=== PATIENT | female | born 1970 | race Caucasian/White ===

== ENCOUNTER → 2019-05-01 | Outpatient (CLI) | payer BC ==
[~2019-05-01] MED LIST: LORTAB 5/500 501 TAB PO; NO HOME MEDICATIONS
== END ==
LOC: MC.RAD 07:25
DX: Z12.31 Encounter for screening mammogram for malignant neoplasm of breast (principal); N63.10 Unspecified lump in the right breast, unspecified quadrant

== ENCOUNTER → 2019-05-07 | Outpatient (CLI) | payer BC | LOC: MC.RAD 14:03 | DX: N60.01 Solitary cyst of right breast (principal) ==

== ENCOUNTER → 2020-06-18 | Outpatient (CLI) | payer BC | LOC: MC.RAD 07:30 | DX: Z12.31 Encounter for screening mammogram for malignant neoplasm of breast (principal) ==

== ENCOUNTER → 2021-07-12 | Outpatient (CLI) | payer BC | LOC: MC.RAD 11:20 | DX: Z12.31 Encounter for screening mammogram for malignant neoplasm of breast (principal) ==

== ENCOUNTER → 2024-02-29 | Outpatient (CLI) | payer BC ==
[~2024-02-29] MED LIST changes: +MOTRIN 600600 MG/TAB PO; +NORCO 325 MG-51 TAB PO
== END ==
LOC: MC.RAD 07:08
DX: Z12.31 Encounter for screening mammogram for malignant neoplasm of breast (principal); N63.10 Unspecified lump in the right breast, unspecified quadrant

== ENCOUNTER → 2024-03-12 | Outpatient (CLI) | payer BC ==
[~2024-03-12] MED LIST changes: -MOTRIN 600600 MG/TAB PO; -NORCO 325 MG-51 TAB PO
== END ==
LOC: MC.RAD 09:49
DX: N63.14 Unspecified lump in the right breast, lower inner quadrant (principal)

== ENCOUNTER 2024-04-01 06:44 | Day surgery (SDC) | payer BC ==
[~2024-04-01] VITALS: Ht 162.6 cm; Wt 89.5 kg
[2024-04-01] MEDS ORDERED: LR 1,000 ML IV ONE (08:15)
[2024-04-01] MEDS ORDERED: Scopolamine 1 MG Delivered 3-Day PATCH TD SCH (08:15)
[2024-04-01] MEDS ORDERED: Famotidine 20 MG TAB PO ONE (08:15)
[2024-04-01 08:56] VITALS: BP 129/79; PULSE 82; TEMP 98
[2024-04-01] MEDS ORDERED: fentaNYL 50 MCG/ML 2 ML VIAL ONE ×2 (10:53→11:50)
[2024-04-01] MEDS ORDERED: dexAMETHasone 10 MG/ML VIAL ONE (10:53)
[2024-04-01] MEDS ORDERED: Lidocaine PF 2% (20 MG/ML) 5 ML VIAL ONE (10:53)
[2024-04-01] MEDS ORDERED: Ketorolac 30 MG/ML VIAL ONE (10:53)
[2024-04-01] MEDS ORDERED: Ondansetron 4 MG/2 ML VIAL ONE (10:53)
[2024-04-01] MEDS ORDERED: Midazolam 2 MG/2 ML VIAL ONE ×2 (10:53→11:28)
[2024-04-01] MEDS ORDERED: NS 10 ML IV ONE (10:53)
[2024-04-01] MEDS ORDERED: HYDROmorphone 2 MG/1 ML VIAL ONE (11:50)
[2024-04-01] MEDS ORDERED: Lidocaine PF 2% (20 MG/ML) 10 ML POLY AMP IJ ONE (12:00)
[2024-04-01] MEDS ORDERED: Topical Skin Adhesive 1 EACH (1 ML) TOP ONE (12:00)
[2024-04-01] MEDS ORDERED: hydrALAZINE 20 MG/ML 1 ML VIAL IV PRN (12:45)
[2024-04-01] MEDS ORDERED: fentaNYL 50 MCG/ML 1 ML SYRINGE/VIAL [PACU/SDC ONLY] IV PRN (12:45)
[2024-04-01] MEDS ORDERED: Ondansetron 4 MG/2 ML VIAL IV PRN (12:45)
[2024-04-01] MEDS ORDERED: HYDROmorphone 1 MG/1 ML SYRINGE [PACU/SDC ONLY] IV PRN (12:45)
[2024-04-01] MEDS ORDERED: MOTRIN 600600 MG/TAB PO (13:30)
[2024-04-01] MEDS ORDERED: NORCO 325 MG-51 TAB PO (13:30)
[2024-04-01 14:15] VITALS: BP 118/71; PULSE 87; TEMP 97
--- NOTE | 2024-04-01 14:15 | NUR ---
PATIENT RETURNED TO BAY 6 VIA CART, ALERT AND ORIENTED X3. DENIES PAIN, NAUSEA AND SHORTNESS OF BREATH. BREATHING REGULAR AND UNLABORED ON 2L VIA NASAL CANNULA. ENCOURAGED PATIENT TO DEEP BREATHE. SKIN WARM AND DRY. NURSE HANDOFF COMPLETED IN ROOM WITH INSPECTION OF SURGICAL INCISIONS. 3 TOTAL SURGICAL INCISIONS. RIGHT NECK INCISION CLEAN AND DRY WITH SURGICAL GLUE INTACT. RIGHT UPPER CHEST INCISON CLEAN AND DRY WITH SURGICAL GLUE INTACT. RIGHT BREAST INCISION CLEAN AND DRY WITH SURGICAL GLUE INTACT. PATIENT HAS NO COMPLAINTS AND HAD GRAPE JUICE AND JELLO. BOTH FOOD AND DRINK TOLERATED WELL. NO DYSPHAGIA. CALL LIGHT IN REACH.
[2024-04-01 14:30] VITALS: BP 126/56; PULSE 83
[2024-04-01 14:45] VITALS: BP 126/64; PULSE 85
[2024-04-01 15:00] VITALS: BP 125/67; PULSE 79
[2024-04-01 15:10] VITALS: BP 130/72; PULSE 76
--- NOTE | 2024-04-01 15:30 | NUR ---
1447: DISCHARGE TEACHING COMPLETED WITH PRINTED EDUCATION AND INSTRUCTIONS SENT HOME WITH PATIENT. PORT A CATH INFORMATION PACKET AND PRODUCT CARDS SENT HOME WITH PATIENT. FOLLOW UP APPOINTMENT DATE, TIME AND LOCATION COMMUNICATED TO PATIENT. PATIENT VERBALIZED UNDERSTANDING. 1505: PATIENT AMBULATED TO RESTROOM WITH STEADY GAIT AND VOIDED. 1513: PATIENT DENIES PAIN, NAUSEA AND SHORTNESS OF BREATH. HAS NO COMPLAINTS. ALL 3 SURGICAL INCISIONS (RIGHT NECK, CHEST AND BREAST) CLEAN AND DRY WITH SURGICAL GLUE INTACT. IV REMOVED. GAUZE AND COBAN PLACED OVER SITE. 1530: PATIENT CHANGED HERSELF INTO HER PERSONAL CLOTHES AND WAS DISCHARGED HOME WITH [facility].
== END 2024-04-01 15:30 | disposition home or self-care (01) ==
LOC: SDCO 06:44
DX: C50.511 Malignant neoplasm of lower-outer quadrant of right female breast (principal); C77.3 Secondary and unspecified malignant neoplasm of axilla and upper limb lymph nodes; Z17.1 Estrogen receptor negative status [ER-]; E66.9 Obesity, unspecified; Z68.34 Body mass index [BMI] 34.0-34.9, adult
CPT/HCPCS: A4648; A9520-JZ; C1788; J0665; J0690; J1100; J1170; J1644; J1885; J2250; J2405; J2704; J2795; J3010; J7120

== ENCOUNTER → 2024-04-12 | Outpatient (REF) | payer BC ==
[~2024-04-12] MED LIST changes: +MOTRIN 600600 MG/TAB PO; +NORCO 325 MG-51 TAB PO
[2024-04-12 16:27] LABS: BAND 7 % (0-10); BASOPHIL 1 % (0-2); LYMPHOCYTE 32 % (20.0-51.0); NEUTROPHILS 55 % (42.0-75.2)
== END ==
LOC: ZCOL.LAB 13:36
PROVIDERS: Family Medicine
DX: C50.811 Malignant neoplasm of overlapping sites of right female breast (principal)

== ENCOUNTER 2024-04-16 12:54 | Day surgery (SDC) | payer BC ==
[~2024-04-16] VITALS: Ht 165.1 cm; Wt 89.5 kg
[~2024-04-16 12:54] MED LIST changes: +LR 1,000 ML IV SCH
--- NOTE | 2024-04-16 13:49 | NUR ---
Portacath to right chest accessed with 1.5inch fajardo needle using portacath access kit. Immediate blood return noted. IV fluids infusing without complication.
[2024-04-16 14:24] VITALS: BP 127/74; PULSE 81; TEMP 98
[2024-04-16] MEDS ORDERED: fentaNYL 50 MCG/ML 2 ML VIAL ONE (15:01)
[2024-04-16] MEDS ORDERED: Lidocaine PF 2% (20 MG/ML) 5 ML VIAL ONE (15:02)
[2024-04-16] MEDS ORDERED: NS 10 ML IV ONE (15:02)
[2024-04-16] MEDS ORDERED: Lidocaine PF 2% (20 MG/ML) 5 ML VIAL SQ ONE (16:13)
[2024-04-16 16:44] VITALS: BP 132/73; PULSE 87; TEMP 97.2
[2024-04-16 17:00] VITALS: BP 147/80; PULSE 83
--- NOTE | 2024-04-16 17:10 | NUR ---
Patient to room 6 via cart at 1644. Monitors placed, vSS. Report received from Álvaro SABILLON and Radha STRIPPER OPAQUER. IV fluids infusing through portacath in right chest. Skin glue to incision, CDI. Patient denies pain or n/v. Diet pepsi and crackers given. Follow up appt made. Cart in low position, call light within reach. Pt alert, oriented x4.
[2024-04-16 17:14] VITALS: BP 156/89; PULSE 81
--- NOTE | 2024-04-16 17:20 | NUR ---
Patient reports pain as 2/10 and tolerable. Denies nausea. Portacath flushed per protocol, deaccessed, see MAR and flowsheet, bandaid placed. Pt dressed without issue. Discharge instructions, education, and follow-up appt reviewed, questions answered. Pt down to friends car at 1720. Dressing CDI.
== END 2024-04-16 17:20 | disposition home or self-care (01) ==
LOC: SDCO 12:54
DX: D05.11 Intraductal carcinoma in situ of right breast (principal); Z17.1 Estrogen receptor negative status [ER-]
CPT/HCPCS: A4648; J0690; J2704; J3010; J7120

== ENCOUNTER → 2024-04-19 | Outpatient (CLI) | payer BC ==
[~2024-04-19] MED LIST changes: -LR 1,000 ML IV SCH
== END ==
LOC: COL.VAS 08:26
DX: C50.811 Malignant neoplasm of overlapping sites of right female breast (principal); K76.89 Other specified diseases of liver